=== PATIENT | male | born 1970 | race Caucasian/White ===

== ENCOUNTER 2025-05-03 04:41 | Inpatient (IN) | payer BC, SELFPAY ==
[2025-05-03] VITALS (12 sets, daily range): BP systolic 80–161; BP diastolic 45–92; BMI 28.0
[2025-05-03 03:26] LABS: % Basophils 0.2 % (0-2); % Eosinophils 0.3 % (0-6); % Immature Granulocytes 0.4 % (0-0.5); % Lymphocytes 9.3 % (20.5-51.1); % Monocytes 11.3 % (1.7-9.3); % Neutrophils 78.5 % (42.2-75.2); Absolute Immature Granulocytes 0.1 10^3/uL (0-0.05); Absolute Lymphocytes 1.1 10^3/uL (1.2-3.4); Absolute Monocytes 1.3 10^3/uL (0.1-0.6); Absolute Neutrophils 9.4 10^3/uL (1.4-6.5); Hematocrit 42.7 % (39.0-52.0); Mean Corp Hgb Conc. 35.1 g/dL (33.0-37.0); Mean Platelet Volume 10.5 fL (7.4-10.4); Nucleated Red Blood Cells % 0 % (-); Platelet Count 155 10^3/uL (130-400); Red Blood Cell Count 4.69 10^6/uL (4.70-6.10); Red Cell Dist. Width 12.7 % (11.5-14.5); White Blood Cell Count 11.9 10^3/uL (4.8-10.8)
--- NOTE | 2025-05-03 03:34 | ED.GENMED ---
History of Present Illness
General
Chief Complaint: Abdominal Pain
Source: patient, records (ED visit in [place] yesterday afternoon. CAT scan shows sigmoid diverticulitis with microperforation with surrounding fluid, no evidence of abscess formation.) and spouse
Exam Limitations: none
Time Seen by Provider: 05/03/25 02:52
Nursing documentation reviewed up to this point in time: agreed with
History of Present Illness
History of Present Illness:
This is a 54-year-old gentleman with no significant past medical history, takes no medicines on a daily basis. He was vacationing with family in [place] when he developed lower abdominal pain accompanied with fever, chills 2 days ago. No history of
similar episodes in the past.
He was evaluated at an ED in [place] and underwent laboratory studies showing mildly elevated white blood cell count of 11.2. CT abdomen pelvis reveals multiple descending colon as well as sigmoid diverticulosis, a long segment of sigmoid colon with
moderate increased mural thickening with adjacent severe fat stranding and localized extraluminal adjacent air compatible with localized perforation. There is small adjacent fluid but no drainable collection. He was given an IV dose of Zosyn 4.5
mg and due to patient and concern for return to the [place] he was discharged to home with prescription for Augmentin 500 mg to take 3 times daily. He was discharged from the ED yesterday late afternoon and he and his have traveled by car from
[place] to this ED, 7 to 8-hour drive.
He continues with moderate suprapubic, left lower quadrant pain that is perhaps mildly improved. No further fever but has been taking Tylenol intermittently with last dose yesterday evening.
He denies dysuria and urgency nor hematuria.
Past History
Past History
ED Past Medical History: None
ED Past Surgical History: None
Social History
Tobacco: Non-smoker
Alcohol: Occasional
Drug: None
Personal:
Living: with family
Employment: Employed
Family History
Family History: Other (Noncontributory)
Phy Exam
Physical Exam
Physical Exam:
GENERAL: 54-year-old gentleman appears his stated age, awake and alert, pleasant, appears mildly uncomfortable, easily communicative. is accompanying.
EYE: anicteric
NECK: Supple, nontender, no meningismus, no significant adenopathy.
ENT: oral mucosa is moist. No rhinorrhea.
CARDIAC: Regular rate and rhythm. no murmur.
LUNGS: Clear breath sounds bilaterally, no acute respiratory distress, no wheezes/rales/rhonchi
ABDOMEN: Soft, nondistended, moderate tenderness suprapubic as well as mild tenderness distal left lower quadrant, no rebound, mild guarding, no rigidity, cvat. normoactive BS.
NEUROLOGICAL: Alert and oriented x3, no focal neuro deficits.
SKIN: Warm and dry, normal color, skin intact. No rash.
MUSCULOSKELETAL: No C/C/E. peripheral pulses are full and equal b/l. No palpable tenderness.
PSYCH: Normal and appropriate interaction.
Course
Orders/Labs/Results
Orders:
Orders
05/03/25 02:52
0.9% Sodium Chloride 1000 ml [Nss] 1,000 ml IV BOLUS
05/03/25 03:06
Complete Blood Count/With Diff Urgent
Comprehensive Metabolic Panel Urgent
Lactic Acid Urgent
Abnormal Lab Results
05/03/25
03:06
WBC 11.9 H 10^3/uL
(4.8-10.8)
RBC 4.69 L 10^6/uL
(4.70-6.10)
MCH 32.0 H pg
(27.0-31.0)
MPV 10.5 H fL
(7.4-10.4)
Abs Immat Gran (auto) 0.1 H 10^3/uL
(0-0.05)
Absolute Neuts (auto) 9.4 H 10^3/uL
(1.4-6.5)
Absolute Lymphs (auto) 1.1 L 10^3/uL
(1.2-3.4)
Absolute Monos (auto) 1.3 H 10^3/uL
(0.1-0.6)
Neutrophils % 78.5 H %
(42.2-75.2)
Lymphocytes % 9.3 L %
(20.5-51.1)
Monocytes % 11.3 H %
(1.7-9.3)
05/03/25 03:06
Vital Signs
Initial and Last Documented VS:
Initial Vital Signs
Temp Pulse Resp BP Pulse Ox
98.6 F 60 18 146/89 96
05/03/25 02:57 05/03/25 02:57 05/03/25 02:57 05/03/25 02:57 05/03/25 02:57
Last Documented Vital Signs
Temp Pulse Resp BP Pulse Ox
98.6 F 60 18 146/89 96
05/03/25 02:57 05/03/25 02:57 05/03/25 02:57 05/03/25 02:57 05/03/25 02:57
MDM/Problems Addressed
Differential Diagnosis Includes:
Patient presents with 2-day history of lower abdominal pain, fever. CT from outside facility shows acute sigmoid diverticulitis with microperforation.
Patient has brought written reports of CAT scan, ED visit, CBC. Unfortunately CT could not be burned to a disc.
Will initiate IV fluids, check labs, give an IV dose of Zosyn and due to significant inflammation and microperforation patient will require acute hospitalization for continued IV antibiotics and consult with colorectal surgery.
*Pulse Oximetry
Patient hypoxic: no
*Critical Care Note
Total Time (30-74mins, 75-104mins- exclusive of procedures): Not Applicable
ED Attending Note
-
Portions of this chart may have been created with voice recognition software.� Occasional wrong word or��sound alike� substitutions may have occurred due to the inherent limitations of voice recognition software.
Discharge Plan
Departure
Patient Disposition: Admit
Date of Disposition: 05/03/25
Time of Disposition: 03:47
Admit to: Med/Surg
Admit to doctor: Edd
Presentation/result/management discussed w/ accepting MD/DO: Hospitalist
Condition: Fair
Discharge Problem:
Acute sigmoid diverticulitis with microp
Interventions
Interventions:
*Risk Screen - Suicide Last Done: 05/03/25 02:57
*General Assessment Last Done: 05/03/25 02:57
*Neglect/Abuse Screening Last Done: 05/03/25 02:57
*ED- Fall Risk Assessment Last Done: 05/03/25 02:57
*ED COVID-19 Vaccine History Last Done: 05/03/25 02:57
JQ-Gpreho-Lwjxjeyguj Assessment Last Done: 05/03/25 03:27
Discharge Date and Time
Print Language: COOK ISLANDER
[2025-05-03 03:52] LABS: Lactic Acid 0.9 mmol/L (0.7-2.0)
[2025-05-03 03:54] LABS: ALT (SGPT) 65 U/L (0-50); AST (SGOT) 37 U/L (17-59); Albumin 4.1 g/dl (3.5-5.0); Alkaline Phosphatase 47 U/L (38-126); Blood Urea Nitrogen 10 mg/dl (9-20); Calcium 8.5 mg/dl (8.4-10.2); Carbon Dioxide 24 mmol/L (22-30); Chloride 105 mmol/L (98-107); Glucose 105 mg/dl (70-99); Potassium 4.2 mmol/L (3.5-5.1); Sodium 135 mmol/L (135-145); Total Bilirubin 1.5 mg/dl (0.2-1.3); Total Protein 6.8 g/dl (6.3-8.2); eGFR > 60.00
[2025-05-03] MEDS: NSS 1000 IV ×2 (03:56→05:09)
[2025-05-03] MEDS: ZOSYN 100 IV (03:56)
--- NOTE | 2025-05-03 04:22 | HPS.HSE ---
Family Physician
-
Family Physician: NOT KNOW UNKNOWN - PT DOES
Chief Complaint
-
Abd Pain
History of Present Illness
Patient is a 54y M with no significant PMH who presents to ED complaining of abdominal pain. Patient was on a fishing trip in [place] when he noted some mild lower abdominal discomfort on Wednesday evening. Wednesday he had more severe pain. He
noted shaking chills. He slept for most of the day Wednesday. When he woke he continued to have pain and presented to a local ED. Evaluation there included CT scan which showed sigmoid diverticulitis with microperforation and no abscess. Patient
elected to leave and travel back to the . He received an initial dose of Zosyn in the ED and was discharged with Augmentin. He took once dose of this thus far and drove 8+ hours to [place] ED.
Patient states that he does feel improved from his prior symptoms.
He denies any N/V. He denies any prior h/o similar symptoms or any prior episodes of diverticulitis.
Medical History
Past Medical History
Past Medical History: Reports None
Past Surgical History: Reports None
Social History
Tobacco: Non-smoker
Alcohol: Daily (2-3 drinks daily.)
Drug: None
Personal:
Family History
Family History: Other (Mother: Diverticultis Brother: Bladder cancer)
Allergies / Home Medications
Allergies reflects when Allergies were last updated in [employer].
Home Medications with original date entered in [employer]
Allergy/Medication List:
Allergies
Allergy/AdvReac Type Severity Reaction Status Date / Time
No Known Allergies Allergy Unverified 05/03/25 03:44
Home Medications
No Meds [No Current Medications] 05/03/25
Review of Systems
-
History Source: Patient
A 12 point ROS was completed and negative except as noted: Yes
Constitutional: Reports Fever, Fatigue and Chills
EENT: Denies Sore Throat
Respiratory: Denies Cough or Trouble Breathing
Cardiac: Denies Chest Pain or Palpitations
Abdomen/GI: Reports Abdominal Pain; Denies Nausea, Vomiting or Diarrhea
: Denies Dysuria or Frequency
Musculoskeletal: Denies Joint Pain or Edema
Neurological: Denies Dizzy or Headache
Physical Exam
Vital Signs
Vital Signs
Temp Pulse Resp BP Pulse Ox
98.6 F 60 18 145/81 96
05/03/25 02:57 05/03/25 02:57 05/03/25 02:57 05/03/25 03:00 05/03/25 02:57
Physical Exam
General: Other (54y M in no acute distress.)
HEENT: Moist mucous membranes and PERRLA
Respiratory: Clear; No Wheezes, Rales or Rhonchi
Cardiac: S1/S2 and Regular Rhythm; No Murmur
GI: Soft, Non Distended, Normal Bowel Sounds and Other (Pos tenderness along lower abdomen - L > R. Pos BS.)
Musculoskeletal: No Clubbing, No Cyanosis and No Edema
Neuro: AO x 3
Laboratory Results
-
05/03/25 03:06
05/03/25 03:06
Laboratory Results
Lactic Acid 0.9 mmol/L (0.7-2.0) 05/03/25 03:06
Total Bilirubin 1.5 mg/dl (0.2-1.3) H 05/03/25 03:06
AST 37 U/L (17-59) 05/03/25 03:06
ALT 65 U/L (0-50) H 05/03/25 03:06
Alkaline Phosphatase 47 U/L (38-126) 05/03/25 03:06
Impression/Plan
-
A/P: Patient is a 54y M with no significant PMH who presents to ED for evaluation of abdominal pain / diverticulitis.
Acute Sigmoid Diverticulitis
- Admit for further evaluation and treatment.
- Notes / CT images from [place] scanned into chart and reviewed.
- CT shows sigmoid diverticulitis with small amount of air / microperforation. No abscess / collection.
- Continue IV abx. NPO, IVFs, pain control.
- Surgery evaluation in the AM.
- Follow for clinical improvement on abx.
DVT Prophylaxis: Lovenox
Code Status: Full
[2025-05-03] MEDS: ZOSYN 50 IV ×3 (10:25→22:00)
--- NOTE | 2025-05-03 12:31 | CON.CRS ---
Consultation
-
Date/Time Consultation Requested: 05/03/2025, 8:59
Date/Time Consultation Performed: 05/03/2025, 9:15
Requesting Provider: Dwayne Edgar MD
Performing Provider: Marcos Dwyer MD
Reason for Consultation: diverticulitis
Medical History
-
Chief Complaint: abdominal pain
History of Present Illness:
54-year-old male presents to [facility] ER on 05/03/2025 complaining of abdominal pain. The patient was recently on a fishing trip in [facility] and during the trip he developed pelvic pain several days ago. He ended up going to hospital
in [place] on 05/02/2025. He underwent a CT scan of the abdomen. The report is available for review however not the imaging. The report showed uncomplicated sigmoid diverticulitis. He was given IV antibiotics and the option to leave and drive to [facility] which he ultimately pursued. He had a WBC of 11.2 in their emergency department. The patient states along with the abdominal pain he is also experienced some fevers and chills although he did not take his temperature. Currently he
states he feels lower quadrant pelvic pain. Denies nausea or vomiting. WBC in the ER is 11.9. Tmax is 99.8. His vitals are otherwise normal. He was started on IV antibiotics in the ER.
He has had no further imaging today. The patient states he has never had a colonoscopy before. He denies prior colon and rectal surgery. His last bowel movement was 2 days ago. Denies a family history of colon or rectal cancer. His mother did
have diverticulitis and ultimately underwent a colectomy. Given his findings of diverticulitis on the CT scan yesterday, we have been consulted for further colorectal surgery opinion.
Past Medical History
Past Medical History: None
Past Surgical History: None
Social History
Tobacco: Non-Smoker
Alcohol: Daily
Drug: None
Personal:
Family History
Family History: Reviewed & Not Pertinent
Allergies / Home Medications
Allergy/AdvReac Type Severity Reaction Status Date / Time
No Known Allergies Allergy Unverified 05/03/25 03:44
�Medication �Instructions �Recorded �Confirmed �Type
No Meds [No Current Medications] 05/03/25 05/03/25 History
Review of Systems
-
History Source: Patient
Constitutional: Fever and Chills
Abdomen/GI: Abdominal Pain
A 10 point review of systems was completed, and was negative except as per HPI.
Physical Exam
Vital Signs
Temp 99.8 F 05/03/25 08:19
Pulse 59 05/03/25 08:19
Resp Rate 16 05/03/25 08:19
Blood pressure 153/92 05/03/25 08:19
SaO2 97 05/03/25 08:19
05/02/25 05/03/25 05/04/25
06:59 06:59 06:59
Actual Weight 88.6 kg
Body Mass Index (BMI) 28.0
Lab Results / Allergies
05/03/25 06:00
05/03/25 06:00
WBC Cancelled 05/03/25 06:00
Hgb Cancelled 05/03/25 06:00
Hct Cancelled 05/03/25 06:00
Plt Count Cancelled 05/03/25 06:00
Abs Immat Gran (auto) 0.1 10^3/uL (0-0.05) H 05/03/25 03:06
Neutrophils % 78.5 % (42.2-75.2) H 05/03/25 03:06
Allergy/AdvReac Type Severity Reaction Status Date / Time
No Known Allergies Allergy Unverified 05/03/25 03:44
Physical Exam
General: Well Developed, Well Nourished and No Apparent Distress
GI: Soft, Non Distended and Tender (lower midline - mild)
Skin: Warm and Dry
Neuro: AO x 3
Assessment / Plan
-
Assessment: 52-year-old male with several days of lower abdominal pain and fevers and chills presented to [facility] ER after being diagnosed with sigmoid diverticulitis while in [place] on a trip
Plan:
- Remain n.p.o. today with IV fluids
- IV antibiotics
- No plans for surgery at this time if he worsens he will require a colectomy with colostomy creation
- Trend WBC and exam
- Will follow
--- NOTE | 2025-05-03 12:47 | W.PN.UPDATE ---
Update Note
Progress Note Update
Patient feels better, pain left lower quadrant still persists although improved.
Continue n.p.o. with IV fluids
Continue IV antibiotics
Colorectal surgery on board
Trend fever curve, white count, clinical symptoms
Can hold on further imaging as he had CT imaging that he brought to us from yesterday
If clinically worsens, will require colectomy with colostomy creation
[2025-05-03] MEDS: LR 1000 IV ×2 (14:04→21:56)
[2025-05-03] MEDS: LOVENOX 40 MG SC (17:30)
[2025-05-04] MEDS: ZOSYN 50 IV ×4 (03:52→21:01)
[2025-05-04 05:51] LABS: Hematocrit 42.6 % (39.0-52.0); Mean Corp Hgb Conc. 35.2 g/dL (33.0-37.0); Mean Corpuscular Hgb 32.1 pg (27.0-31.0); Mean Corpuscular Volume 91.2 fL (80.0-94.0); Mean Platelet Volume 10.8 fL (7.4-10.4); Platelet Count 156 10^3/uL (130-400); Red Blood Cell Count 4.67 10^6/uL (4.70-6.10); Red Cell Dist. Width 12.2 % (11.5-14.5); White Blood Cell Count 10.3 10^3/uL (4.8-10.8)
[2025-05-04 06:15] LABS: ALT (SGPT) 47 U/L (0-50); AST (SGOT) 34 U/L (17-59); Albumin 3.6 g/dl (3.5-5.0); Alkaline Phosphatase 53 U/L (38-126); Blood Urea Nitrogen 11 mg/dl (9-20); Calcium 8.4 mg/dl (8.4-10.2); Carbon Dioxide 21 mmol/L (22-30); Chloride 107 mmol/L (98-107); Estimated Creatinine Clearance 106 ml/min; Glucose 83 mg/dl (70-99); Potassium 4.1 mmol/L (3.5-5.1); Sodium 134 mmol/L (135-145); Total Bilirubin 1.7 mg/dl (0.2-1.3); Total Protein 6.2 g/dl (6.3-8.2); eGFR > 60.00
[2025-05-04 07:40] VITALS: BP 158/93
--- NOTE | 2025-05-04 07:51 | W.PN.CRS1 ---
Today's Communication / Plan
-
advance to clears then fulls
no plans for surgery today
Assessment/Plan
-
Assessment: 52-year-old male with several days of lower abdominal pain and fevers and chills presented to [facility] ER after being diagnosed with sigmoid diverticulitis while in [place] on a trip
Plan:
- Advance diet to clears
- Continue IV antibiotics
- No plans for surgery at this time if he worsens he will require a colectomy with colostomy creation
- Trend WBC and exam
- Will follow
Subjective Data
Subjective Data
Date of Service: May 04, 2025
Patient states he feels better today. He still has lower pelvic pain but it is improved. Denies nausea or vomiting. He is thirsty.
Objective Data
-
Vital Signs
Temp Pulse Resp BP Pulse Ox
99.6 F 68 16 138/73 96
05/03/25 23:36 05/03/25 23:36 05/03/25 23:36 05/03/25 23:36 05/03/25 23:36
Intake & Output
05/03/25 05/04/25 05/05/25
06:59 06:59 06:59
Intake Total 1300 / 1300
Balance 1300 / 1300
Intake:
IV fluids (Total) 1200 / 1200
IV piggybacks 100 / 100
Other:
Number of approximated MODERATE 3
amounts of urine
Lab Results
05/04/25 05:32
05/04/25 05:32
Physical Exam
-
General: No Acute Distress and AOx3
Abdomen: Soft, Non Distended and Tender (lower pelvic pain - mild)
Skin: Warm and Dry
[2025-05-04] MEDS: LR 1000 IV ×2 (08:58→20:16)
--- NOTE | 2025-05-04 13:51 | W.PN.HOSP.TC ---
Addendum entered and electronically signed by Dwayne Edgar MD 05/04/25 13:59:
Hyponatremia
Original Note:
Today's Communication/Plan
-
CLD, adv to FLD if tolerates well
IV abx
Assessment / Plan
Assessment / Plan
Physical Exam
General: Other (54y M in no acute distress.)
HEENT: Moist mucous membranes and PERRLA
Respiratory: Clear; No Wheezes, Rales or Rhonchi
Cardiac: S1/S2 and Regular Rhythm; No Murmur
GI: Soft, Non Distended, Normal Bowel Sounds and Other (Pos tenderness along lower abdomen - L > R. Pos BS.)
Musculoskeletal: No Clubbing, No Cyanosis and No Edema
Neuro: AO x 3
A/P: Patient is a 54y M with no significant PMH who presents to ED for evaluation of abdominal pain / diverticulitis.
Acute Sigmoid Diverticulitis
- Admit for further evaluation and treatment.
- Notes / CT images from [place] scanned into chart and reviewed.
- CT shows sigmoid diverticulitis with small amount of air / microperforation. No abscess / collection.
- Continue IV abx. IVFs, pain control.
- CRS - conservative management
- CLD, adv to FLD later today possibility
- Follow for clinical improvement on abx.
DVT Prophylaxis: Lovenox
Code Status: Full
Anticipated Discharge: 24 - 48 hours
Subjective/Interval History
-
Date of Service: May 04, 2025
abd pain improving
Objective Data
-
Labs:
Laboratory Results
05/04/25
05:32
WBC 10.3
Hgb 15.0
Hct 42.6
Plt Count 156
Sodium 134 L
Potassium 4.1
Chloride 107
Carbon Dioxide 21 L
BUN 11
Creatinine 0.8
Glucose 83
Calcium 8.4
Total Bilirubin 1.7 H
AST 34
ALT 47
Alkaline Phosphatase 53
Vital Signs:
Vital Signs
Temp Pulse Resp BP Pulse Ox
98.5 F 57 16 158/93 96
05/04/25 07:40 05/04/25 07:40 05/04/25 07:40 05/04/25 07:40 05/04/25 12:47
I&O
05/03/25 05/04/25 05/05/25
06:59 06:59 06:59
Intake Total 1300 / 1300
Balance 1300 / 1300
Review of Systems
-
History Source: Patient
All other systems: Not reviewed unless documented
Data Reviewed
-
Labs: Labs Reviewed by me
[2025-05-04 15:25] VITALS: BP 149/90
--- NOTE | 2025-05-04 17:03 | CM ---
Alert awake oriented patient who lives with his Kylee who lives in a 2 story home with 0 step to enter and 12 steps to bed and bathroom. He is independent in driving and in all activities of daily living.He was offered VN he declined need.
No VN hx / No SNF history
Pharmacy [facility] [address]
PCP None gave [facility] information
PLAN Home Declined VN
[2025-05-04] MEDS: LOVENOX 40 MG SC (17:05)
[2025-05-04 23:34] VITALS: BP 140/85
[2025-05-05] MEDS: ZOSYN 50 IV ×3 (03:07→16:46)
[2025-05-05] MEDS: LR 1000 IV (05:59)
[2025-05-05 07:33] LABS: ALT (SGPT) 52 U/L (0-50); AST (SGOT) 42 U/L (17-59); Albumin 3.8 g/dl (3.5-5.0); Alkaline Phosphatase 47 U/L (38-126); Blood Urea Nitrogen 8 mg/dl (9-20); Calcium 8.7 mg/dl (8.4-10.2); Carbon Dioxide 25 mmol/L (22-30); Chloride 106 mmol/L (98-107); Estimated Creatinine Clearance 95 ml/min; Glucose 89 mg/dl (70-99); Potassium 4.4 mmol/L (3.5-5.1); Sodium 138 mmol/L (135-145); Total Bilirubin 1.4 mg/dl (0.2-1.3); Total Protein 6.4 g/dl (6.3-8.2); eGFR > 60.00
[2025-05-05 08:05] LABS: Hematocrit 43.1 % (39.0-52.0); Mean Corp Hgb Conc. 34.8 g/dL (33.0-37.0); Mean Corpuscular Hgb 32.3 pg (27.0-31.0); Mean Corpuscular Volume 92.7 fL (80.0-94.0); Mean Platelet Volume 10.8 fL (7.4-10.4); Platelet Count 187 10^3/uL (130-400); Red Blood Cell Count 4.65 10^6/uL (4.70-6.10); Red Cell Dist. Width 12.6 % (11.5-14.5); White Blood Cell Count 7.4 10^3/uL (4.8-10.8)
[2025-05-05 08:29] VITALS: BP 139/83
--- NOTE | 2025-05-05 10:38 | W.PN.HOSP.TC ---
Addendum entered and electronically signed by Dwayne Edgar MD 05/05/25 12:29:
[id number]
Original Note:
Today's Communication/Plan
-
- Improved on IV antibiotics.
� Tolerating full liquid diet
� Advance to low residue diet
� If tolerating regular diet, can discharge on antibiotics
� Additional 12-day course of Augmentin to complete 14-day course
� Continue low residue diet
� Follow-up with colorectal surgery outpatient
- F/u Bili and CBC outpt
Assessment / Plan
Assessment / Plan
Physical Exam
General: Other (54y M in no acute distress.)
HEENT: Moist mucous membranes and PERRLA
Respiratory: Clear; No Wheezes, Rales or Rhonchi
Cardiac: S1/S2 and Regular Rhythm; No Murmur
GI: Soft, Non Distended, Normal Bowel Sounds and Other (Pos tenderness along lower abdomen - L > R. Pos BS.)
Musculoskeletal: No Clubbing, No Cyanosis and No Edema
Neuro: AO x 3
A/P: Patient is a 54y M with no significant PMH who presents to ED for evaluation of abdominal pain / diverticulitis.
Acute Sigmoid Diverticulitis
- Admit for further evaluation and treatment.
� Colorectal surgery consulted, conservative management
- Notes / CT images from [place] scanned into chart and reviewed.
- CT shows sigmoid diverticulitis with small amount of air / microperforation. No abscess / collection.
- Improved on IV antibiotics.
� Tolerating full liquid diet
� Advance to low residue diet
� If tolerating regular diet, can discharge on antibiotics
� Additional 12-day course of Augmentin to complete 14-day course
� Continue low residue diet
� Follow-up with colorectal surgery outpatient
DVT Prophylaxis: Lovenox
Code Status: Full
More than 30 minutes spent in discharge including
Final examination of the patient
Summarizing hospital stay
Instructions for continuing care to all relevant caregivers
Preparation of discharge records, prescriptions, and referral forms
Total time spent (in minutes): 36
Anticipated Discharge: Today
Subjective/Interval History
-
Date of Service: May 05, 2025
Symptoms improved, tolerating full liquids. Advancing to low residue today
Objective Data
-
Labs:
Laboratory Results
05/05/25
06:03
WBC 7.4
Hgb 15.0
Hct 43.1
Plt Count 187
Sodium 138
Potassium 4.4
Chloride 106
Carbon Dioxide 25
BUN 8 L
Creatinine 0.9
Glucose 89
Calcium 8.7
Total Bilirubin 1.4 H
AST 42
ALT 52 H
Alkaline Phosphatase 47
Vital Signs:
Vital Signs
Temp Pulse Resp BP Pulse Ox
98.1 F 54 18 139/83 99
05/05/25 08:29 05/05/25 08:29 05/05/25 08:29 05/05/25 08:29 05/05/25 08:29
I&O
05/04/25 05/05/25 05/06/25
06:59 06:59 06:59
Intake Total 1300 / 1300 5110 / 5110
Balance 1300 / 1300 5110 / 5110
Review of Systems
-
History Source: Patient
All other systems: Not reviewed unless documented
Data Reviewed
-
Labs: Labs Reviewed by me
--- NOTE | 2025-05-05 11:25 | W.DS.TRANS ---
DC Summary - [employer]
-
Discharge Instructions:
Discharge Diagnosis/Procedures Sigmoid diverticulitis with small amount of air
/ microperforation
Diet Low Fiber
Activity As tolerated
Blood Work cbc and cmp in 5 - 7 days with PCP; Monitor WBC
and Bili
Instructions:
Stand-Alone Forms:
Changes to Home Medications: Yes
Discharge Medications:
DC Medications w/original date entered in [facility]
amoxicillin 875 mg-potassium clavulanate 125 mg tablet 1 tab PO Q12H 12 days #24 tabs 05/05/25
Home Medication Changes
amoxicillin 875 mg-potassium clavulanate 125 mg tablet 1 tab PO Q12H 12 days #24 tabs 05/05/25
Pending Results: No
--- NOTE | 2025-05-05 13:02 | W.PN.CRS1 ---
Addendum entered and electronically signed by Sergio Stafford MD 05/05/25 13:14:
I saw and examined the patient.
The [employer] Mechanic's note was reviewed and I agree with the note.
Comment: AFVSS, no complaints, radha PO. minimal ttp to llq on exam. OK for DC home with PO abx. Rec f/u with CRS
Original Note:
Today's Communication / Plan
-
dispo planning
Assessment/Plan
-
Assessment: 52-year-old male with several days of lower abdominal pain and fevers and chills presented to [facility] ER after being diagnosed with sigmoid diverticulitis while in [place] on a trip
AFVSS
No leukocytosis
Mild tenderness with exam, otherwise no pain
Tolerating dietary advancements
Plan:
- Advance diet to low residue
- Continue abx, transition to Po upon d/c
--Ok for d/c from surgical standpoint, will plan surgical follow up in the outpatient setting
Subjective Data
Subjective Data
Date of Service: May 05, 2025
Patient seen and examined at bedside with Dr. Stafford. Denies pain. Denies n/v. Passing flatus. Feeling overall much improved.
Objective Data
-
Vital Signs
Temp Pulse Resp BP Pulse Ox
98.1 F 54 18 139/83 99
05/05/25 08:29 05/05/25 08:29 05/05/25 08:29 05/05/25 08:29 05/05/25 08:29
Intake & Output
05/04/25 05/05/25 05/06/25
06:59 06:59 06:59
Intake Total 1300 / 1300 5110 / 5110
Balance 1300 / 1300 5110 / 5110
Intake:
Oral fluids 2610 / 2610
IV fluids (Total) 1200 / 1200 2300 / 2300
IV piggybacks 100 / 100 200 / 200
Other:
Number of approximated MODERATE 3 6
amounts of urine
How many times incontinent 7
MODERATE amount urine
Lab Results
05/05/25 06:03
05/05/25 06:03
Physical Exam
-
General: No Acute Distress and AOx3
Abdomen: Soft, Non Distended and Tender (lower pelvic - mild)
Skin: Warm and Dry
--- NOTE | 2025-05-05 15:40 | PTCARENOTE ---
Pt tolerating low residue diet without nausea or abdominal pain. Pt states that he remains tender to palpation of the mid to left lower quadrant. Pt had a couple of loose, bo BMs this am, small amount. Provided pt with written and verbal education
on low residue diet. Discussed foods to include and foods to avoid on a low residue diet.
[2025-05-05 15:54] VITALS: BP 146/86
== END 2025-05-05 17:51 | disposition home or self-care (01) | DRG 392 ==
LOC: 4 EAST ACU 04:41
PROVIDERS: ADMITTING PHYSICIAN Hospitalist; ATTENDING PHYSICIAN Internal Medicine; CONSULT PHYSICIAN Surgery; EMERGENCY PHYSICIAN Emergency Medicine
DX: K57.20 Diverticulitis of large intestine with perforation and abscess without bleeding (principal); Z80.52 Family history of malignant neoplasm of bladder
CPT/HCPCS: 80053; 83605; 85025; 85027; 87040; 96361; 96365; 99284

== ENCOUNTER 2025-05-15 14:32 | Inpatient (IN) | payer BC, SELFPAY ==
[2025-05-15 12:03] VITALS: BP 143/91
--- NOTE | 2025-05-15 12:31 | ED.GENMED ---
History of Present Illness
General
Chief Complaint: Abdominal Pain
Source: patient
Exam Limitations: none
Time Seen by Provider: 05/15/25 12:20
History of Present Illness
History of Present Illness:
Note:
CHIEF COMPLAINT(S)
Abdominal pain and follow-up after a CT scan indicating possible worsened diverticulitis with microperforations.
HISTORY OF PRESENT ILLNESS
The patient is a 54-year-old male with a history of diverticulitis, which was initially diagnosed a week ago with evidence of microperforations. The patient was discharged with a prescription for Augmentin and has been compliant with the medication.
He underwent a CT scan last night because of an upcoming follow-up appointment with colorectal on the . However, the doctor called him today and instructed him to visit the emergency room immediately due to concerning findings on the CT scan.
The patient described the abdominal pain as mild but persistent. He denies any recent fever, blood in stools, or vomiting but reports increased fatigue. He had previously been hospitalized and received injections, likely Lovenox, which left
bruising, but he is unsure if it contributed to the bruising he noticed. He reports working earlier today, though he felt very tired.
MEDICATIONS
The patient was prescribed Augmentin after the initial diagnosis of diverticulitis a week ago.
REVIEW OF SYSTEMS
- Abdominal: Persistent mild pain in the abdomen.
- Gastrointestinal: Normal bowel movements, no blood, and no vomiting reported.
- Other Symptoms: Fatigue noted, affecting his work endurance.
PHYSICAL EXAM
- Heart regular rate and rhythm
Lungs: Clear
- Abdominal: The abdomen is soft but mildly tender to the left lower quadrant no guarding or rebound tenderness
- Nursing notes reviewed and vital signs reviewed.
PROBLEM LIST
Acute:
- Diverticulitis with possible worsening and microperforations.
PLAN
- Obtain the report of the recent CT scan as soon as it is available.
- Conduct blood work to assess current status and rule out any significant changes.
- Monitor for any additional signs of worsening perforation or formation of an abscess.
DIFFERENTIAL DIAGNOSIS
The Differential Diagnosis includes, in no particular order and is not limited to:
1. Worsening diverticulitis
2. Peritonitis
3. Abscess formation
Past History
Past History
ED Past Medical History: None
ED Past Surgical History: None
Social History
Tobacco: Non-smoker
Alcohol: Occasional
Drug: None
Personal:
Living: with family
Employment: Employed
Family History
Family History: Other (Noncontributory)
Phy Exam
Physical Exam
Physical Exam:
See above
Course
Orders/Labs/Results
Orders:
Orders
05/15/25 12:40
Complete Blood Count/With Diff Urgent
Comprehensive Metabolic Panel Urgent
Lactic Acid Q4H
Comment: CANCEL 2nd LACTIC ACID IF 1st LACTIC ACID IS LESS THAN 2
05/15/25 13:42
Piperacillin/Tazo 3.375 Gram [Zosyn] 3.375 gram in 50 ml IV NOW
Abnormal Lab Results
05/15/25
12:40
MCH 31.5 H pg
(27.0-31.0)
Absolute Monos (auto) 0.8 H 10^3/uL
(0.1-0.6)
Monocytes % 9.8 H %
(1.7-9.3)
ALT 89 H U/L
(0-50)
05/15/25 12:40
05/15/25 12:40
Vital Signs
Initial and Last Documented VS:
Initial Vital Signs
Temp Pulse Resp BP Pulse Ox
98.8 F 60 17 143/91 99
05/15/25 12:03 05/15/25 12:03 05/15/25 12:03 05/15/25 12:03 05/15/25 12:03
Last Documented Vital Signs
Temp Pulse Resp BP Pulse Ox
98.8 F 57 20 130/86 97
05/15/25 12:03 05/15/25 13:47 05/15/25 13:47 05/15/25 13:47 05/15/25 13:47
*Pulse Oximetry
Patient hypoxic: no (99%)
*Critical Care Note
Total Time (30-74mins, 75-104mins- exclusive of procedures): Not Applicable
Update Note
Update Note:
Discussed findings with colorectal specialist. I reviewed the CAT scan report from [facility] that was done yesterday. This reads as acute sigmoid diverticulitis with contained perforation and pericolonic abscess. The abscess measures 1.3 x
3.8 cm. Discussed with colorectal who recommended admitting to hospitalist restarting antibiotics. Rectal will touch base with interventional radiology.
ED Attending Note
-
Portions of this chart may have been created with voice recognition software.� Occasional wrong word or��sound alike� substitutions may have occurred due to the inherent limitations of voice recognition software.
Discharge Plan
Departure
Patient Disposition: Admit
Date of Disposition: 05/15/25
Time of Disposition: 13:54
Presentation/result/management discussed w/ accepting MD/DO: Hospitalist
Discharge Problem:
Diverticulitis of intestine with abscess
Prescriptions:
No Action
amoxicillin-pot clavulanate 875-125 mg tablet
1 tab PO Q12H 12 Days Qty: 24 0RF
Rx Instructions:
patient to start on 05/05/25 for 12 days
Digestive Advantage Prob Gummy 250 million cell Tablet,Chewable
1 tab PO DAILY
Referrals:
Jm Reed DO [Family Provider, Family Practice]
Interventions
Interventions:
*Risk Screen - Suicide Last Done: 05/15/25 12:05
*General Assessment Last Done: 05/15/25 12:05
*Neglect/Abuse Screening Last Done: 05/15/25 12:05
*ED COVID-19 Vaccine History Last Done: 05/15/25 12:05
UQ-Tbrycg-Cjeoykweoc Assessment Last Done: 05/15/25 13:46
Discharge Date and Time
Print Language: CHINESE
[2025-05-15 12:49] LABS: % Basophils 0.8 % (0-2); % Eosinophils 2.2 % (0-6); % Immature Granulocytes 0.3 % (0-0.5); % Monocytes 9.8 % (1.7-9.3); % Neutrophils 62.9 % (42.2-75.2); Absolute Basophils 0.1 10^3/uL (0-0.2); Absolute Eosinophils 0.2 10^3/uL (0-0.7); Absolute Lymphocytes 1.8 10^3/uL (1.2-3.4); Absolute Monocytes 0.8 10^3/uL (0.1-0.6); Absolute Neutrophils 4.8 10^3/uL (1.4-6.5); Hematocrit 43.3 % (39.0-52.0); Mean Corp Hgb Conc. 34.6 g/dL (33.0-37.0); Mean Corpuscular Hgb 31.5 pg (27.0-31.0); Mean Platelet Volume 10.2 fL (7.4-10.4); Nucleated Red Blood Cells % 0 % (-); Platelet Count 242 10^3/uL (130-400); Red Blood Cell Count 4.76 10^6/uL (4.70-6.10); White Blood Cell Count 7.7 10^3/uL (4.8-10.8)
[2025-05-15 12:59] LABS: Lactic Acid 0.9 mmol/L (0.7-2.0)
[2025-05-15 13:03] LABS: ALT (SGPT) 89 U/L (0-50); AST (SGOT) 49 U/L (17-59); Albumin 4.1 g/dl (3.5-5.0); Alkaline Phosphatase 39 U/L (38-126); Blood Urea Nitrogen 11 mg/dl (9-20); Carbon Dioxide 26 mmol/L (22-30); Chloride 105 mmol/L (98-107); Glucose 99 mg/dl (70-99); Potassium 4.3 mmol/L (3.5-5.1); Sodium 137 mmol/L (135-145); Total Bilirubin 0.6 mg/dl (0.2-1.3); eGFR > 60.00
[2025-05-15 13:47] VITALS: BP 130/86
[2025-05-15] MEDS: ZOSYN 50 IV ×2 (13:51→20:12)
--- NOTE | 2025-05-15 14:15 | HPS.HSE ---
Family Physician
-
Family Physician: Jm Reed
Chief Complaint
-
abdominal pain
History of Present Illness
54-year-old male past medical history of diverticulitis hospitalized from 05/03 to 05/05 with evidence of microperforation. He was discharged with prescription for Augmentin has been compliant with the medication. He underwent CT scan last night
because of upcoming follow-up appointment with colorectal on the . Called him today instructed him to see the emergency room due to concerning findings on the CT scan.
He has been having abdominal pain described as mild but persistent. He denies any fevers, blood in the stool or vomiting. He has increased fatigue. He has been eating low fiber diet.
Denies smoking. He drinks alcohol occasionally but no alcohol in 2 weeks.
Medical History
Past Medical History
Past Medical History: Reports Other (diverticulitis)
Past Surgical History: Reports None
Social History
Tobacco: Non-smoker
Alcohol: Occasional
Drug: None
Family History
Family History: Not pertinent
Allergies / Home Medications
Allergies reflects when Allergies were last updated in [facility].
Home Medications with original date entered in [facility]
Allergy/Medication List:
Allergies
Allergy/AdvReac Type Severity Reaction Status Date / Time
No Known Allergies Allergy Unverified 05/15/25 12:05
Home Medications
amoxicillin 875 mg-potassium clavulanate 125 mg tablet 1 tab PO Q12H 12 days #24 tabs 05/05/25
Bacillus coagulans 250 million cell chewable tablet (Digestive Advantage Probiotic Gummy) 1 tab PO DAILY 05/15/25
Review of Systems
-
History Source: Patient
A 12 point ROS was completed and negative except as noted: Yes
Constitutional: Reports No Symptoms
EENT: Reports No Symptoms
Respiratory: Reports No Symptoms
Cardiac: Reports No Symptoms
Abdomen/GI: Reports See HPI
: Reports No Symptoms
Musculoskeletal: Reports No Symptoms
Skin: Reports No Symptoms
Neurological: Reports No Symptoms
Endocrine: Reports No Symptoms
Hematologic/Lymphatic: Reports No Symptoms
Psych: Reports No Symptoms
Physical Exam
Vital Signs
Vital Signs
Temp Pulse Resp BP Pulse Ox
98.8 F 57 20 130/86 97
05/15/25 12:03 05/15/25 13:47 05/15/25 13:47 05/15/25 13:47 05/15/25 13:47
Physical Exam
General: Well Developed, Well Nourished and No Apparent Distress
HEENT: NormoCephalic, Moist mucous membranes and Atraumatic
Respiratory: Clear
Cardiac: S1/S2 and Regular Rhythm; No Murmur or Rub
GI: Soft, Non Distended, Normal Bowel Sounds and Tender (LLQ); No Organomegaly
Rectal: Deferred by Provider
Musculoskeletal: No Clubbing, No Cyanosis and No Edema
Skin: No Rash
Neuro: Nonfocal/grossly intact
Laboratory Results
-
05/15/25 12:40
05/15/25 12:40
Laboratory Results
Lactic Acid Cancelled 05/15/25 16:45
Total Bilirubin 0.6 mg/dl (0.2-1.3) 05/15/25 12:40
AST 49 U/L (17-59) 05/15/25 12:40
ALT 89 U/L (0-50) H 05/15/25 12:40
Alkaline Phosphatase 39 U/L (38-126) 05/15/25 12:40
Data Reviewed
-
Lab Data: Labs Reviewed by me
Old Records: Reviewed
Impression/Plan
-
IMPRESSION:
PLAN:
# Persistent sigmoid diverticulitis now with abscess
- CT scan shows acute sigmoid diverticulitis with contained perforation and pericolonic abscess 1.3 x 3.8 cm
-NPO
- Zosyn
- Colorectal surgery consulted who will discuss with IR to see if abscess can be drained
Full code
DVT prophylaxis�heparin
--- NOTE | 2025-05-15 14:37 | CON.CRS ---
Consultation
-
Date/Time Consultation Requested: 05/15/2025, 14:23
Date/Time Consultation Performed: 05/15/2025, 15:00
Requesting Provider: Tutu Orta MD
Performing Provider: Migue Sanches MD
Reason for Consultation: diverticulitis
Medical History
-
Chief Complaint: abdominal pain
History of Present Illness:
54-year-old male presents to [facility] emergency department due to abnormal CAT scan that was found at [place]. The patient had initially presented on 05/03/2025 [facility] complaining of pain. He actually had been diagnosed with
uncomplicated sigmoid diverticulitis while on a trip in [place] the day prior and he was given IV antibiotics and drove to [facility] to seek medical care. He was admitted to our hospital for 3 days and was discharged on 05/05/2025 with oral
antibiotics. His hospital course was uncomplicated. He saw his primary a week ago and due to a bruise on his LLQ, she ordered a CT scan. It was performed yesterday at an outpatient radiology center in [facility]. His physician called him to go
to the emergency room due to findings on the CT scan. Unfortunately the patient does not have a copy of the CT scan but he does have a report. This showed acute sigmoid diverticulitis with contained perforation and pericolonic abscess measuring
1.3 x 3.8 cm within the mesentery of the sigmoid colon. Currently he states he is very tired and has some LLQ mild tenderness. Otherwise, he has no new complaints. Given these findings, he will be admitted for further workup.
Past Medical History
Past Medical History: Other (diverticulitis)
Past Surgical History: None
Social History
Tobacco: Non-Smoker
Alcohol: Daily
Drug: None
Family History
Family History: Reviewed & Not Pertinent
Allergies / Home Medications
Allergy/AdvReac Type Severity Reaction Status Date / Time
No Known Allergies Allergy Unverified 05/15/25 12:05
�Medication �Instructions �Recorded �Confirmed �Type
amoxicillin 875 mg-potassium 1 tab PO Q12H 12 days #24 tabs 05/05/25 05/15/25 Rx
clavulanate 125 mg tablet
Bacillus coagulans 250 million 1 tab PO DAILY 05/15/25 05/15/25 History
cell chewable tablet (Digestive
Advantage Probiotic Gummy)
Review of Systems
-
History Source: Patient
Abdomen/GI: Abdominal Pain
A 10 point review of systems was completed, and was negative except as per HPI.
Physical Exam
Vital Signs
Temp 98.8 F 05/15/25 12:03
Pulse 57 05/15/25 13:47
Resp Rate 20 05/15/25 13:47
Blood pressure 130/86 05/15/25 13:47
SaO2 97 05/15/25 13:47
05/14/25 05/15/25 05/16/25
06:59 06:59 06:59
Actual Weight 85.5 kg
Lab Results / Allergies
05/15/25 12:40
05/15/25 12:40
WBC 7.7 10^3/uL (4.8-10.8) 05/15/25 12:40
Hgb 15.0 g/dL (13.0-18.0) 05/15/25 12:40
Hct 43.3 % (39.0-52.0) 05/15/25 12:40
Plt Count 242 10^3/uL (130-400) 05/15/25 12:40
Abs Immat Gran (auto) 0.0 10^3/uL (0-0.05) 05/15/25 12:40
Neutrophils % 62.9 % (42.2-75.2) 05/15/25 12:40
Allergy/AdvReac Type Severity Reaction Status Date / Time
No Known Allergies Allergy Unverified 05/15/25 12:05
Physical Exam
General: Well Developed, Well Nourished and No Apparent Distress
GI: Soft, Non Tender and Tender (LLQ- mild)
Neuro: AO x 3
Psych: Calm
Data Reviewed
-
CT Scan: Report Reviewed by me
Labs: Labs Reviewed by me, Discussed with Physician and Discussed with Patient
Old Records: Reviewed
Assessment / Plan
-
Assessment: 54-year-old male with recent hospitalization at [facility] for uncomplicated sigmoid diverticulitis now presents with an abnormal finding on an outpatient CT scan that shows an abscess in the sigmoid colon
Plan:
- Unfortunately we are not able to obtain images from 10 at this time. Patient will need to repeat CT abdomen and pelvis with p.o. and IV contrast here at [place].His will attempt to obtain a CT disc in the meantime.
- Remain on IV antibiotics
- N.p.o.
- Discussed situation with interventional radiology who is requiring imaging before any further procedures can be done.
[2025-05-15 15:42] VITALS: BP 131/87
[2025-05-15 15:58] VITALS: BMI 26.7
[2025-05-15 16:00] VITALS: BP 138/88
--- NOTE | 2025-05-15 17:43 | PTCARENOTE ---
Pt arrived to unit and transferred from stretcher to bed by himself around 1545. Self transfer. Pt oriented to room and staff. Vitals stable. No pain reported at this time. All needs met. Plan of care ongoing. drove to [facility] to obtain
Pt's CT scan results from outpatient on 05/14. Pt states that successfully picked up the images and is on her way back at this time.
[2025-05-15] MEDS: HEPARIN 5000 UNITS SC (20:12)
[2025-05-15 22:58] VITALS: BP 119/75
[2025-05-16] VITALS (7 sets, daily range): BP systolic 56–140; BP diastolic 78–87
[2025-05-16] MEDS: ZOSYN 50 IV ×4 (02:02→20:49)
--- NOTE | 2025-05-16 04:23 | DOWNTIME ---
Addendum entered by Marga Triplett RN 05/16/25 14:10:
Correction to downtime 05/16/2025 from 0100 to 05/16/25 at 0415.
Original Note:
There was a [employer] Downtime on 05/15/2025 from 0100 to 05/16/2025 at 0415. Downtime documentation of patient's care, including medication administrations, has been reconciled in the electronic record per guidelines. Refer to the
patient's paper chart under the miscellaneous tab to see printed paper medication records and downtime forms.
[2025-05-16 06:48] LABS: % Basophils 0.8 % (0-2); % Eosinophils 2.5 % (0-6); % Immature Granulocytes 0.4 % (0-0.5); % Lymphocytes 20.4 % (20.5-51.1); % Monocytes 10.1 % (1.7-9.3); % Neutrophils 65.8 % (42.2-75.2); Absolute Basophils 0.1 10^3/uL (0-0.2); Absolute Eosinophils 0.2 10^3/uL (0-0.7); Absolute Lymphocytes 1.5 10^3/uL (1.2-3.4); Absolute Monocytes 0.7 10^3/uL (0.1-0.6); Absolute Neutrophils 4.8 10^3/uL (1.4-6.5); Hematocrit 46.1 % (39.0-52.0); Hemoglobin 15.6 g/dL (13.0-18.0); Mean Corp Hgb Conc. 33.8 g/dL (33.0-37.0); Mean Corpuscular Volume 91.7 fL (80.0-94.0); Mean Platelet Volume 10.2 fL (7.4-10.4); Nucleated Red Blood Cells % 0 % (-); Platelet Count 252 10^3/uL (130-400); Red Blood Cell Count 5.03 10^6/uL (4.70-6.10); White Blood Cell Count 7.3 10^3/uL (4.8-10.8)
[2025-05-16 07:17] LABS: ALT (SGPT) 92 U/L (0-50); AST (SGOT) 48 U/L (17-59); Albumin 4.1 g/dl (3.5-5.0); Alkaline Phosphatase 44 U/L (38-126); Blood Urea Nitrogen 11 mg/dl (9-20); Calcium 9.3 mg/dl (8.4-10.2); Carbon Dioxide 29 mmol/L (22-30); Chloride 105 mmol/L (98-107); Estimated Creatinine Clearance 85 ml/min; Glucose 90 mg/dl (70-99); Sodium 140 mmol/L (135-145); Total Bilirubin 0.9 mg/dl (0.2-1.3); eGFR > 60.00
[2025-05-16] MEDS: HEPARIN 5000 UNITS SC ×2 (08:54→20:50)
--- NOTE | 2025-05-16 09:56 | CM ---
Patient seen at bedside
IA completed
Await IR procedure
explained role of CM
DX: sigmoid diverticulitis
PMH: diverticulitis hospitalized from 05/03-05-05
Patient lives with in 2 story home, no DIOGO, flight to bedroom, full bath on 1st floor
PLOF: Independent
Denies DME
Denies VN/Rehab
Denies insecurities
PCP: Jm Perez
Phamacy: [facility]
Plan: Home when stable, no needs anticipated, CM to continue to follow
--- NOTE | 2025-05-16 09:56 | W.PN.CRS1 ---
Today's Communication / Plan
-
upload outpatient imaging to our system
if unable to find disc, will need an inpatient CT
maintain abx
NPO until imaging and discussion with IR
Assessment/Plan
-
Assessment: 54-year-old male with recent hospitalization at [facility] for uncomplicated sigmoid diverticulitis now presents with an abnormal finding on an outpatient CT scan that shows an abscess in the sigmoid colon
WBC 7.3, vitals normal
Plan:
- Patient's has brought in outpatient disc from his CT scan two days ago. Attempting to find where disc was dropped off so imaging can be uploaded. Once we have imaging, will discuss abscess with IR to see if this is drainable.
- Remain on IV antibiotics
- N.p.o. until imaging
- Will discuss imaging with IR when obtained
Subjective Data
Subjective Data
Date of Service: May 16, 2025
Patient states he feels 'great'. He has no pain. Denies nausea or vomiting. Having bowel function. He is very hungry.
Objective Data
-
Vital Signs
Temp Pulse Resp BP Pulse Ox
98.1 F 47 19 140/83 96
05/16/25 07:00 05/16/25 07:00 05/16/25 07:00 05/16/25 07:00 05/16/25 07:00
Intake & Output
05/15/25 05/16/25 05/17/25
06:59 06:59 06:59
Intake Total 200 / 200
Balance 200 / 200
Intake:
Oral fluids 100 / 100
IV piggybacks 100 / 100
Other:
Number of approximated MODERATE 1
amounts of urine
Lab Results
05/16/25 06:20
05/16/25 06:20
Physical Exam
-
General: No Acute Distress and AOx3
Abdomen: Soft, Non Distended and Non Tender
Skin: Warm and Dry
--- NOTE | 2025-05-16 12:51 | W.PN.HOSP.TC ---
Today's Communication/Plan
-
Assessment / Plan
Assessment / Plan
General: No Apparent Distress, Comfortable and Conversant
HEENT: NormoCephalic, Moist mucous membranes, Atraumatic
Respiratory: Clear and Non Labored Respirations
Cardiac: S1/S2 and Regular Rhythm; No Rub or Gallop
GI: Soft, minimal TTP left lower quadrant, Non Distended and Normal Bowel Sounds
Musculoskeletal: No Edema, no deformity
Skin: Warm and dry
: NO Wagner
Neuro: Awake, Alert, Nonfocal/grossly intact
Psych: Calm and Intact Judgment/Insight
Mr. Wilson is a 54-year-old male with a medical history of recent diverticulitis with microperforation (hospitalized 05/03-05/05) treated medically who now returns with evidence of abscess formation on outpatient repeat CT scan. He was told to seek
treatment in the ED by his outpatient physician. He is afebrile and hemodynamically stable. He had been taking Augmentin as an outpatient which has now been transitioned to IV Zosyn at time of admission.
Diverticulitis with microperforation and abscess:
- Progression from initial hospitalization 05/03 through 05/05 at which time he was treated medically and discharged on Augmentin
- Repeat CT imaging as an outpatient showed evidence of abscess formation and so he was told to seek medical treatment as an inpatient
- N.p.o. pending IR evaluation for possible drain placement
- Pain minimal
- No surgical plans at this time
DVT prophylaxis: Subcu heparin
CODE STATUS: Full code
Total time spent on today's encounter was 35 minutes
Anticipated Discharge: 24 - 48 hours
Subjective/Interval History
-
Date of Service: May 16, 2025
Patient was seen and examined at bedside this morning. Awaiting IR evaluation and possible drain for diverticulitis with abscess. Pain minimal.
Objective Data
-
Labs:
Laboratory Results
05/16/25
06:20
WBC 7.3
Hgb 15.6
Hct 46.1
Plt Count 252
Sodium 140
Potassium 5.0
Chloride 105
Carbon Dioxide 29
BUN 11
Creatinine 1.0
Glucose 90
Calcium 9.3
Total Bilirubin 0.9
AST 48
ALT 92 H
Alkaline Phosphatase 44
Vital Signs:
Vital Signs
Temp Pulse Resp BP Pulse Ox
98.1 F 47 19 140/83 96
05/16/25 07:00 05/16/25 07:00 05/16/25 07:00 05/16/25 07:00 05/16/25 07:00
I&O
05/15/25 05/16/25 05/17/25
06:59 06:59 06:59
Intake Total 200 / 200
Balance 200 / 200
Review of Systems
-
History Source: Patient
All other systems: Reviewed and negative
Abdomen/GI: Reports Abdominal Pain
Physical Exam
-
General: No Apparent Distress
--- NOTE | 2025-05-16 16:13 | W.PN.UPDATE ---
Update Note
Progress Note Update
- CT guided aspiration of LLQ diverticular abscess
- Collection too small for drain placement. 19g needle advanced into collection and 4 mL of purulent fluid aspirated. No remaining fluid on post CT images.
- Samples sent for g/c.
[2025-05-17] MEDS: ZOSYN 50 IV ×2 (01:51→08:37)
[2025-05-17 08:00] VITALS: BP 129/83
[2025-05-17] MEDS: HEPARIN 5000 UNITS SC (08:38)
--- NOTE | 2025-05-17 09:35 | CM ---
Patient seen at bedside
IR yesterday-CT guided aspiration of LLQ diverticular abscess
Collection too small for drain placement
clear liq
PLAN: Home, no needs when stable
--- NOTE | 2025-05-17 11:00 | W.PN.CRS1 ---
Today's Communication / Plan
-
low residue
finish course of abx
Assessment/Plan
-
Assessment: 54-year-old male with recent hospitalization at [facility] for uncomplicated sigmoid diverticulitis now presents with an abnormal finding on an outpatient CT scan that shows an abscess in the sigmoid colon
No labs, vitals normal
05/16- Aspiration by IR for perisigmoid abscess
Plan:
- Advance to low residue
-No plans for surgery at this time
-Continue course of antibiotics
-Cultures pending
-OKay for discharge from our perspective, follow up in our office in a few weeks. Discussed with patient.
Subjective Data
Subjective Data
Date of Service: May 17, 2025
Patient states he has no pain. He is very hunry. Denies nausea or vomiting. Has bowel function.
Objective Data
-
Vital Signs
Temp Pulse Resp BP Pulse Ox
98.3 F 57 16 129/83 100
05/17/25 08:00 05/17/25 08:00 05/17/25 08:00 05/17/25 08:00 05/17/25 08:00
Intake & Output
05/16/25 05/17/25 05/18/25
06:59 06:59 06:59
Intake Total 200 / 200 1440 / 1440
Balance 200 / 200 1440 / 1440
Intake:
Oral fluids 100 / 100 1440 / 1440
IV piggybacks 100 / 100
Other:
Number of approximated MODERATE 1 2
amounts of urine
Lab Results
05/16/25 06:20
05/16/25 06:20
Physical Exam
-
General: No Acute Distress and AOx3
Abdomen: Soft, Non Distended and Non Tender
Skin: Warm and Dry
--- NOTE | 2025-05-17 11:54 | W.DCSUMMARY ---
Discharge Summary
Discharge Data
Date of Admission: 05/15/25
Date of Discharge: 05/17/25
Total time spent discharging patient (in min): 40
-
Pending Results: Yes (Abscess cultures)
Hospital Course
Mr. Wilson is a 54-year-old male with a medical history of recent diverticulitis with microperforation (hospitalized 05/03-05/05) treated medically who returned with evidence of abscess formation on outpatient repeat CT scan. He was told to seek
treatment in the ED by his outpatient physician. He remained afebrile and hemodynamically stable. He had been taking Augmentin as an outpatient which was transitioned to IV Zosyn at time of admission. He was evaluated by interventional radiology
who were able to aspirate approximately 4 cc of purulent fluid from the abscess with no drain placement necessary. Abscess cultures are pending. He tolerated the procedure well and his abdominal pain improved after aspiration. He was able to
tolerate a p.o. diet. He was medically stable for discharge to home with outpatient surgical follow-up. He will be continued on a course of oral antibiotics. He will need to follow-up with his general surgeon regarding culture results and further
management as needed.
General: No Apparent Distress, Comfortable and Conversant
HEENT: NormoCephalic, Moist mucous membranes, Atraumatic
Respiratory: Clear and Non Labored Respirations
Cardiac: S1/S2 and Regular Rhythm; No Rub or Gallop
GI: Soft, minimal TTP left lower quadrant, Non Distended and Normal Bowel Sounds
Musculoskeletal: No Edema, no deformity
Skin: Warm and dry
: NO Wagner
Neuro: Awake, Alert, Nonfocal/grossly intact
Psych: Calm and Intact Judgment/Insight
Discharge Plan
-
Patient Disposition: Home (Routine Discharge)
Discharge Diagnosis/Procedures: Diverticulitis with microperforation and abscess
Diet: Low Residue
Activity: No restrictions
Activity Restrictions/Additional Instructions:
Mr. Wilson is a 54-year-old male with a medical history of recent diverticulitis with microperforation (hospitalized 05/03-05/05) treated medically who returned with evidence of abscess formation on outpatient repeat CT scan. He was told to seek
treatment in the ED by his outpatient physician. He remained afebrile and hemodynamically stable. He had been taking Augmentin as an outpatient which was transitioned to IV Zosyn at time of admission. He was evaluated by interventional radiology
who were able to aspirate approximately 4 cc of purulent fluid from the abscess with no drain placement necessary. Abscess cultures are pending. He tolerated the procedure well and his abdominal pain improved after aspiration. He was able to
tolerate a p.o. diet. He was medically stable for discharge to home with outpatient surgical follow-up. He will be continued on a course of oral antibiotics. He will need to follow-up with his general surgeon regarding culture results and further
management as needed.
Instructions: Low-fiber diet
Referrals:
Marcos Dwyer MD [Active, [facility]] - in three to four weeks
Jm Reed DO [Family Provider, [facility]]
Prescriptions:
Continued
Digestive Advantage Prob Gummy 250 million cell Tablet,Chewable
1 tab PO DAILY
amoxicillin-pot clavulanate 875-125 mg tablet
1 tab PO Q12H 10 Days Qty: 20 0RF
Rx Instructions:
Patient to continue antibiotics for another 10 days from 05/17/2025
Discharge Orders:
Discharge Patient (As Directed); Ordered 05/17/25
Ordered By: Joseph Frederick
Discharge Date and Time
Print Language: KINYARWANDA
== END 2025-05-17 12:46 | disposition home or self-care (01) | DRG 392 ==
LOC: 3 WEST ACU 14:32
PROVIDERS: Physician Assistant; Radiology Diagnostic Radiology; ADMITTING PHYSICIAN Hospitalist; ATTENDING PHYSICIAN Internal Medicine; CONSULT PHYSICIAN Surgery; EMERGENCY PHYSICIAN Emergency Medicine; FAMILY PHYSICIAN Family Medicine
PROC: 0D9 Gastrointestinal System, Drainage (ICD-10-PCS; 2025-05-16)
DX: K57.20 Diverticulitis of large intestine with perforation and abscess without bleeding (principal)
CPT/HCPCS: 10160; 77012; 80053; 83605; 85025; 87070; 87071; 87186; 87205; 96365; 99152; 99284